=== PATIENT | female | born 1985 | race Two or more races ===

== ENCOUNTER 2022-04-15 04:16 | Inpatient (IN) | payer MEDICAID ==
[2022-04-13 11:17] LABS: Basophils # (auto) 0 10 ^3/uL (0-0.2); Basophils % (auto) 0.3 % (0.0-2.0); Eosinophils # (auto) 0.2 10 ^3/uL (0-0.8); Eosinophils % (auto) 1.9 % (0.0-7.0); Hemoglobin 10.7 g/dL (12.2-16.2); Lymphocytes # (auto) 1.7 10 ^3/uL (0.4-5.4); Lymphocytes % (auto) 20.1 % (10.0-50.0); Mean Corpuscular Hemoglobin 28.4 pg (28.0-32.0); Mean Corpuscular Hgb Conc. 32.3 g/dL (32.0-36.0); Mean Corpuscular Volume 87.9 fL (80.0-100.0); Monocytes # (auto) 0.7 10 ^3/uL (0-1.3); Monocytes % (auto) 7.9 % (0.0-12.0); Neutrophils % (auto) 69.8 % (37.0-80.0); Nucleated Red Blood Cells % 0.1 %; Red Blood Cells 3.76 10^6/uL (4.0-5.20); Red Cell Distribution Width 14.2 % (11.8-14.3); White Blood Cell 8.5 10^3/uL (4.4-10.8)
[2022-04-13 11:31] LABS: INR 0.89 (0.9-1.15); Partial Thromboplastin Time 23.5 sec (24.6-33.4)
[2022-04-13 11:38] LABS: Albumin 2.7 g/dL (3.4-5.0); Calcium 8.7 mg/dL (8.5-10.1); Potassium 3.8 mmol/L (3.5-5.1)
[2022-04-13 11:41] LABS: BUN/Creatinine Ratio 12.3; Bilirubin, Total 0.7 mg/dL (0.2-1.0); Total Protein 7.4 g/dL (6.4-8.2)
[2022-04-13 11:44] LABS: Urine Bacteria FEW /hpf (None Seen); Urine Blood Negative /uL (Negative); Urine Specific Gravity 1.007 (1.001-1.035); Urine WBC 1 /hpf (0 - 5)
[2022-04-13 12:04] LABS: Alcohol, Urine < 3.0 mg/dL (0-10); Amphetamine Screen, Urine NEGATIVE (NEGATIVE); Barbiturate Scree,Urine NEGATIVE (NEGATIVE); Benzodiazephine Screen, Urine NEGATIVE (NEGATIVE); Cannabinoid Screen, Urine NEGATIVE (NEGATIVE); Cocaine Screen, Urine NEGATIVE (NEGATIVE); Opiate Scree,Urine NEGATIVE (NEGATIVE); Phencyclidine Screen, Urine NEGATIVE (NEGATIVE)
[2022-04-14 08:06] LABS: RPR Non Reactive (Non Reactive)
[2022-04-15] VITALS (14 sets, daily range): BP systolic 100–134; BP diastolic 61–71
[~2022-04-15] VITALS: Ht 165.1 cm; Wt 80.3 kg
[2022-04-15] MEDS ORDERED: LACTATED RINGER'S 1,000 ML IV ONE (04:30)
[2022-04-15] MEDS ORDERED: ceFAZolin 1GM/50ML 50 ML IV ONE (04:30)
[2022-04-15] MEDS ORDERED: LACTATED RINGER'S 1,000 ML IV SCH (04:30)
[2022-04-15] MEDS ORDERED: PREN1TAB71 OR (05:37)
[2022-04-15] MEDS ORDERED: TETRACAINE 1% INJ 2 ML VIAL IJ ONE (07:50)
[2022-04-15] MEDS ORDERED: PHENYLEPHRINE HCL 10 MG/ML VL IV ONE (07:55)
[2022-04-15] MEDS ORDERED: MORPHINE SULF PF 5 MG/10 ML VIAL ONE (07:55)
[2022-04-15] MEDS ORDERED: fentaNYL CITRATE 100 MCG/2 ML VL ONE (07:56)
[2022-04-15] MEDS ORDERED: MIDAZOLAM HCL 2MG/2ML 2ml VIAL (1mg/ml) ONE (07:56)
[2022-04-15] MEDS ORDERED: oxyTOCIN 10 UNIT/ML 10ML VIAL ONE (08:14)
[2022-04-15] MEDS ORDERED: IBUP800T27 PO (08:40)
[2022-04-15] MEDS ORDERED: DOCU-94 PO (08:40)
[2022-04-15] MEDS ORDERED: HYDR-4902 PO (08:40)
[2022-04-15] MEDS ORDERED: GUM (CHEWING) 1 GUM CHEW CHEW ONE ×2 (08:45→09:15)
[2022-04-15] MEDS ORDERED: ONDANSETRON HCL 4 MG/2 ML VIAL IV PRN ×3 (08:45→09:15)
[2022-04-15] MEDS ORDERED: LACT. RINGERS/OXYTOCIN 20UNITS 1,000 ML IV ONE (08:45)
[2022-04-15] MEDS ORDERED: DexAMETHasone SOD PHOS 10MG/1ML VIAL INJ IV PRN (09:15)
[2022-04-15] MEDS ORDERED: LABETALOL HCL 5 MG/ML 4ML SYRINGE IV PRN (09:15)
[2022-04-15] MEDS ORDERED: KETOROLAC TROMETH 30 MG/ML 1ML VIAL IV PRN (09:15)
[2022-04-15] MEDS ORDERED: NALOXONE HCL 0.4 MG/ML VIAL IV PRN (09:15)
[2022-04-15] MEDS ORDERED: MIDAZOLAM HCL 2MG/2ML 2ml VIAL (1mg/ml) IV PRN (09:15)
[2022-04-15] MEDS ORDERED: diphenhdrAMINE HCL 50 MG/1 ML VL IV PRN (09:15)
[2022-04-15] MEDS ORDERED: ePHEDrine SULFATE 50 MG/ML AMP IV PRN (09:15)
[2022-04-15] MEDS ORDERED: HYDROmorphone HCL 2 MG/ML VL/or syr IV PRN (09:15)
[2022-04-15] MEDS ORDERED: NALBUPHINE HCL 10 MG/1ml INJECTION SUBCUT ONE (09:15)
[2022-04-15] MEDS: LACTATED RINGER'S 1,000 ML IV SCH ×2 (10:32→14:45)
[2022-04-15] MEDS: ACETAMINOPHEN IV 1000 MG/100ML (10MG/ML) IV PRN ×2 (11:26→20:17)
[2022-04-15] MEDS: ceFAZolin 1GM/50ML 50 ML IV SCH ×2 (15:08→23:12)
[2022-04-15 23:15] LABS: Basophils # (auto) 0 10 ^3/uL (0-0.2); Basophils % (auto) 0.1 % (0.0-2.0); Eosinophils # (auto) 0 10 ^3/uL (0-0.8); Eosinophils % (auto) 0.1 % (0.0-7.0); Hematocrit 32.7 % (36.0-46.0); Hemoglobin 10.7 g/dL (12.2-16.2); Lymphocytes # (auto) 0.9 10 ^3/uL (0.4-5.4); Lymphocytes % (auto) 5.4 % (10.0-50.0); Mean Corpuscular Hemoglobin 28.5 pg (28.0-32.0); Mean Corpuscular Hgb Conc. 32.6 g/dL (32.0-36.0); Mean Corpuscular Volume 87.6 fL (80.0-100.0); Monocytes # (auto) 0.7 10 ^3/uL (0-1.3); Monocytes % (auto) 4.1 % (0.0-12.0); Neutrophils # (auto) 14.7 10 ^3/uL (1.6-8.6); Neutrophils % (auto) 90.3 % (37.0-80.0); Red Blood Cells 3.74 10^6/uL (4.0-5.20); Red Cell Distribution Width 14.3 % (11.8-14.3); White Blood Cell 16.2 10^3/uL (4.4-10.8)
[2022-04-16] VITALS (13 sets, daily range): BP systolic 103–131; BP diastolic 52–82
[2022-04-16] MEDS: ACETAMINOPHEN IV 1000 MG/100ML (10MG/ML) IV PRN (04:17)
[2022-04-16 06:21] LABS: Basophils # (auto) 0 10 ^3/uL (0-0.2); Basophils % (auto) 0.1 % (0.0-2.0); Eosinophils # (auto) 0 10 ^3/uL (0-0.8); Eosinophils % (auto) 0.1 % (0.0-7.0); Hematocrit 32.5 % (36.0-46.0); Hemoglobin 10.7 g/dL (12.2-16.2); Lymphocytes # (auto) 0.8 10 ^3/uL (0.4-5.4); Lymphocytes % (auto) 6.4 % (10.0-50.0); Mean Corpuscular Hemoglobin 28.6 pg (28.0-32.0); Mean Corpuscular Hgb Conc. 32.8 g/dL (32.0-36.0); Mean Corpuscular Volume 87.3 fL (80.0-100.0); Monocytes # (auto) 0.5 10 ^3/uL (0-1.3); Monocytes % (auto) 4.2 % (0.0-12.0); Neutrophils # (auto) 11.5 10 ^3/uL (1.6-8.6); Neutrophils % (auto) 89.2 % (37.0-80.0); Red Blood Cells 3.72 10^6/uL (4.0-5.20); Red Cell Distribution Width 14.2 % (11.8-14.3); White Blood Cell 12.8 10^3/uL (4.4-10.8)
[2022-04-16 07:07] LABS: Rubella Antibodies, IgG <0.90 index (Immune >0.99)
[2022-04-16] MEDS: DOCUSATE SOD 100 MG CAP PO SCH ×2 (08:31→22:21)
[2022-04-16] MEDS: HYDROcodone-ACET 5/325MG TAB PO PRN ×2 (08:31→19:15)
[2022-04-16] MEDS: ceFAZolin 1GM/50ML 50 ML IV SCH (08:31)
[2022-04-16] MEDS: LACTATED RINGER'S 1,000 ML IV SCH (10:00)
[2022-04-16] MEDS: IBUPROFEN 800 MG TAB PO PRN ×2 (14:50→23:10)
[2022-04-16] MEDS ORDERED: PIPERACILLIN-TAZOB 3.375GM 100 ML IV SCH (18:00)
[2022-04-17 03:00] VITALS: BP 108/62
[2022-04-17] MEDS: HYDROcodone-ACET 5/325MG TAB PO PRN ×3 (03:41→14:02)
[2022-04-17] MEDS ORDERED: PIPERACILLIN-TAZOB 3.375GM 100 ML IV SCH (04:00)
[2022-04-17 06:49] VITALS: BP 94/57
[2022-04-17 11:00] VITALS: BP 100/57
[2022-04-17] MEDS: IBUPROFEN 800 MG TAB PO PRN (11:35)
== END 2022-04-17 14:35 | disposition home or self-care (01) | DRG 540 ==
LOC: LDRP 04:16
PROVIDERS: ADMIT Obstetrics & Gynecology; ATTEND Obstetrics & Gynecology
PROC: 10D00Z1 Extraction of Products of Conception, Low, Open Approach (ICD-10-PCS; principal; 2022-04-15 07:50)
DX: O34.211 Maternal care for low transverse scar from previous cesarean delivery (principal); R50.82 Postprocedural fever; Z37.0 Single live birth; Z20.822 Contact with and (suspected) exposure to COVID-19; Z3A.39 39 weeks gestation of pregnancy
CPT/HCPCS: 36415; 71046; 74176; 80053; 80307; 81001; 84112; 85025; 85610; 85730; 86592; 86703; 86762; 86850; 86900; 86901; 87086; 87340; 94760; 94762; 96360; 96361; 96365; 96366; 96372; G0378; J0131; J0690; J2250; J2405; J2543; J2590